=== PATIENT | female | born 1995 | race African-American/Black ===

== ENCOUNTER 2017-08-15 06:11 | Emergency (ER) | payer SELFPAY ==
[2017-08-15] MEDS ORDERED: NS 1000 ML 1,000 ML IV ONE (06:21)
--- NOTE | 2017-08-15 06:22 | DR.GENAD ---
PMH - PMH Past Medical History: Asthma, Seizures Past Surgical History: No - Family History Family Medical History: Diabetes Mellitus, Hypertension - Social History Do you use any recreational Drugs:: No PE - Vital Signs Vitals: Blood Pressure [Right Arm] 118/72 Blood Pressure 130/76 - Discharge Plan Condition: Stable - Follow ups/Referrals Follow ups/Referrals: NFD,None [Primary Care Provider] - 3 days - Instructions
[2017-08-15 06:26] VITALS: BP 114/81; BMI 21.2
== END 2017-08-15 06:28 | disposition left against medical advice (07) ==
LOC: ER 06:11
DX: R25.3 Fasciculation (principal)
CPT/HCPCS: 96365; 99282; 99283

== ENCOUNTER 2017-09-30 09:44 | Emergency (ER) | payer OTHER ==
[2017-09-30 09:49] VITALS: BP 144/107; BMI 23.0
--- NOTE | 2017-09-30 10:03 | DR.SOBA ---
HPI - Time Seen Time seen: 09:50 - Primary Care Physician Primary Care Physician: NFD - Complaints Chief Complaint Doctors Comments: Patient with a history of asthma, awakened this AM with difficulity in breathing. She used her brothers inhlaer for relief. She states that she has had a cold for three days. She smokes 1ppd. She is alert in no acute distress. Chief Complaint:: PT C/O SOB AND DIFFICULTY BREATHING AND THAT SHE WOKE UP 30 MIN AND SHE WAS HAVING TROUBLE BREATHING PT HAS BEEN OUT OF HER INHAILER FOR 2 MONTHS DUE TO HER MEDICADE BEING TURNED OFF .. Self Treatment fo Chief Complaint: PT LUNGS ARE CLEAR AND HE IS BREATHING HEAVY AND WHEN SHE TALKS HER BREATHING SLOWS DOWN , - Source History Provided: Patient - Mode of Arrival Mode of Arrival: Ambulatory - Timing Onset of Chief Complaint: 09/30/17 PMH - PMH Past Medical History: Yes Past Medical History: Asthma, Seizures Past Surgical History: No - Family History History of Family Medical Conditions: No Family Medical History: Diabetes Mellitus, Hypertension - Social History Does patient currently use any type of tobacco product: Yes Have you used tobacco products in the last 12 months: Yes Type of Tobacco Use: Cigarettes How many years tobacco product used: 1 Does any household member use tobacco: No Alcohol Use: None Do you use any recreational Drugs:: No Lives With: Family Lives Where: Home - infectious screening In the last 2 months have you had wt loss of >10#?: NO Have you had fever, night sweats or hemotysis?: No Have you traveled outside the country in the last 6 months?: No Isolation: Standard ROS - Review of Systems Eyes: No Symptoms Reported ENTM: No Symptoms Reported Respiratoy: No Symptoms Reported Cardiovascular: No Symptoms Reported Gastrointestinal/Abdominal: No Symptoms Reported Genitourinary: No Symptoms Reported Neurological: No Symptoms Reported Musculoskeletal: No Symptoms Reported Integumentary: No Symptoms Reported Hematologic/Lymphatic: No Symptoms Reported Endocrine: No Symptoms Reported Psychiatric: No Symptoms Reported All Other Systems: Reviewed and Negative PE - Vital Signs Vitals: Pulse Rate 121 Respiratory Rate 22 Blood Pressure [Right Arm] 118/72 Blood Pressure 144/107 O2 Sat by Pulse Oximetry 100 - General Limitations: No Limitations General Appearance: Alert, In No Apparent Distress - Head Head Exam: Normal Inspection, Atraumatic - Eyes Eye exam: Normal Appearance, PERRL, EOMI - ENT ENT Exam: Normal Exam - Neck Neck Exam: Normal Inspection - Chest Chest Inspection: Normal Inspection - Respiratory Respiratory Exam: Normal Lung Sounds Bilat Respiratory Exam: Bilateral Clear to Auscultation - Cardiovascular Cardiovascular Exam: Regular Rate - Abdominal Exam Abdominal Exam: Normal Inspection Abdominal Tenderness: negative: RUQ, RLQ, LUQ, LLQ, Epigastrium, Suprapubic, Diffuse, Mild, Moderate, Severe, Other - Extremities Extremities Exam: Normal Inspection, Full ROM - Back Back Exam: Normal Inspection - Neurologic Neurological Exam: Alert, Oriented X3, CN II-XII Intact - Psychiatric Psychiatric Exam: Normal Affect - Skin Skin Exam: Warm, Dry, Intact Course - Reevaluation 1st: Unchanged - Diagnosis Discharge Problem: asthmatic exacerbation, Elevated blood pressure reading Upper respiratory infection Qualifiers: URI type: unspecified viral URI Qualified Code(s): J06.9 - Acute upper respiratory infection, unspecified - Discharge Plan Condition: Stable - Follow ups/Referrals Follow ups/Referrals: NFD,None [Primary Care Provider] - 3 days - Instructions
[2017-09-30] MEDS ORDERED: DUONEB 0.5 MG/3 MG NEB ONE (10:31)
== END 2017-09-30 10:52 | disposition home or self-care (01) ==
LOC: ER 09:49
DX: J45.901 Unspecified asthma with (acute) exacerbation (principal); R03.0 Elevated blood-pressure reading, without diagnosis of hypertension; J06.9 Acute upper respiratory infection, unspecified
CPT/HCPCS: 99282

== ENCOUNTER 2018-01-25 13:44 | Emergency (ER) | payer SELFPAY ==
[2018-01-25 13:49] VITALS: BP 126/73; BMI 24.3
== END 2018-01-25 14:42 | disposition left against medical advice (07) ==
LOC: ER 14:02
DX: M54.5 Low back pain (principal)
CPT/HCPCS: 99281